=== PATIENT | female | born 1980 | race Caucasian/White ===

== ENCOUNTER 2017-01-03 03:41 | Outpatient (CLI) | payer BC ==
[~2017-01-03] VITALS: Ht 180.3 cm; Wt 81.4 kg
[~2017-01-03 03:41] MED LIST: MOTRIN 800800 MG/TAB PO; PERCOCET 325 MG1 TA2 PO; PRENATAL VITA1 UDTAB PO; QUALITY CHOICE325 MG PO
[2017-01-03 03:55] VITALS: BP 111/68; PULSE 79; TEMP 98.7
[2017-01-03] MEDS ORDERED: RESTASIS 60VL OP (04:00)
[2017-01-03] MEDS ORDERED: PROBIOTIC FORMU1 CAP PO (04:01)
[2017-01-03] MEDS ORDERED: TYLENOL 500MG500 MG PO (04:01)
[2017-01-03] MEDS ORDERED: FLONASEALLERGY NS (04:02)
[2017-01-03] MEDS ORDERED: PRILOSEC 20MG20 MG PO (04:02)
[2017-01-03 04:30] VITALS: BP 101/58; PULSE 73; TEMP 98.7
[2017-01-03 05:00] VITALS: BP 99/59; PULSE 73
[2017-01-03 05:37] VITALS: BP 93/55; PULSE 70
== END 2017-01-03 05:50 | disposition home or self-care (01) ==
LOC: LDRO 03:41
DX: O36.8130 Decreased fetal movements, third trimester, not applicable or unspecified (principal); Z3A.37 37 weeks gestation of pregnancy

== ENCOUNTER 2017-01-15 03:01 | Inpatient (IN) | payer BC ==
[~2017-01-15] VITALS: Ht 177.8 cm; Wt 80.0 kg
[2017-01-15] VITALS (28 sets, daily range): BP systolic 94–143; BP diastolic 55–83; PULSE 63–87; TEMP 97.6–98.2
[~2017-01-15 03:01] MED LIST changes: +FLONASEALLERGY NS; +PRILOSEC 20MG20 MG PO; +PROBIOTIC FORMU1 CAP PO; +RESTASIS 60VL OP; +TYLENOL 500MG500 MG PO
[2017-01-15 05:21] LABS: BASO # 0.1 (0.0-0.2); BASO % 0.3 % (0.0-2.0); EOS % 0.2 % (0-4.0); GRAN # 13.6 (1.4-6.5); GRAN % 76.1 % (42.2-75.2); HEMOGLOBIN 12.5 g/dl (12.5-16.0); LYMPH % 16.8 % (20.0-51.0); MEAN CELL VOLUME 89 fl (80.0-100.0); MEAN CORPUSCULAR HEMOGLOBIN 31 pg (27.0-31.0); MEAN CORPUSCULAR HGB CONC 35 g/dl (33.0-37.0); MEAN PLATELET VOLUME 10.1 fl (7.4-10.4); MONO # 1.1 (0.1-0.6); MONO % 6.1 % (1.7-9.3); PLATELET COUNT 257 K/mm3 (130-400); RED BLOOD COUNT 4.04 M/mm3 (4.10-5.30); REDCELL DISTRIBUTION WIDTH-CV 12.3 % (11.5-14.5); WHITE BLOOD COUNT 17.9 K/mm3 (4.8-10.8)
[2017-01-15 05:30] LABS: HEMATOCRIT 36.1 % (37.0-47.0)
[2017-01-15] MEDS ORDERED: PERCOCET 325 MG1 TA2 PO (05:50)
[2017-01-15] MEDS ORDERED: MOTRIN 800800 MG/TAB PO (05:50)
[2017-01-16 06:40] VITALS: BP 112/71; PULSE 87; TEMP 98.3
== END 2017-01-16 12:10 | disposition home or self-care (01) | DRG 775 ==
LOC: LDRO 03:01 → LDR 04:35 → OB 10:30 → LDRO 01-22 10:22
PROVIDERS: Obstetrics & Gynecology
PROC: 10E0XZZ Delivery of Products of Conception, External Approach (ICD-10-PCS; principal; 2017-01-15)
DX: O75.89 Other specified complications of labor and delivery (principal); M35.00 Sjogren syndrome, unspecified; Z3A.39 39 weeks gestation of pregnancy; Z37.0 Single live birth
CPT/HCPCS: J2590; J2795; J7120